=== PATIENT | male | born 1980 ===

== ENCOUNTER 2018-01-13 12:04 | Emergency (ER) | payer SELFPAY ==
--- NOTE | 2018-01-13 13:12 | C.PDOC ---
History Of Present Illness 37 year old male presents to the ED for alcohol intoxication. Otherwise he denies any suicidal or homicidal ideation. Denies any other medical complaints. Time Seen by Provider: 01/13/18 12:16 Chief Complaint (Nursing): Substance Abuse Past Medical History Vital Signs: Last Vital Signs Temp 97.8 F 01/13/18 12:07 Pulse 88 01/13/18 12:07 Resp 20 01/13/18 12:07 BP 131/88 01/13/18 12:07 Pulse Ox 96 01/13/18 12:07 Family History: States: Unknown Family Hx - Social History Hx Alcohol Use: Yes Hx Substance Use: No - Immunization History Hx Tetanus Toxoid Vaccination: (unk) Hx Influenza Vaccination: (unk) Hx Pneumococcal Vaccination: (unk) Review Of Systems Except As Marked, All Systems Reviewed And Found Negative. Gastrointestinal: Negative for: Nausea, Vomiting, Diarrhea Psych: Negative for: Depression, Suicidal ideation Physical Exam - Physical Exam Appears: Non-toxic, Other (alcohol smell on breath) Skin: Warm, Dry Head: Normacephalic Eye(s): bilateral: Normal Inspection Chest: Symmetrical Cardiovascular: Rhythm Regular Respiratory: Normal Breath Sounds Gastrointestinal/Abdominal: Soft, No Tenderness Extremity: Normal ROM Extremity: Bilateral: Atraumatic Neurological/Psych: Oriented x3, Normal Speech Gait: Steady ED Course And Treatment O2 Sat by Pulse Oximetry: 96 (RA) Pulse Ox Interpretation: Normal Disposition - Disposition Referrals: [employer] [facility] [Outside] [facility] [Outside] Disposition: HOME/ ROUTINE Disposition Time: 13:30 Condition: IMPROVED Additional Instructions: SERENA TRAYLOR, thank you for letting us take care of you today. The emergency medical care you received today was directed at your acute symptoms. If you were prescribed any medication, please fill it and take as directed. It may take several days for your symptoms to resolve. Return to the Emergency Department if your symptoms worsen, do not improve, or if you have any other problems. Please contact your doctor or call one of the physicians/clinics you have been referred to that are listed on the Patient Visit Information form that is included in your discharge packet. Bring any paperwork you were given at discharge with you along with any medications you are taking to your follow up visit. Our treatment cannot replace ongoing medical care by a primary care provider outside of the emergency department. Thank you for allowing the [facility] team to be part of your care today. Follow up with your doctor or our clinic this week for outpatient care. Instructions: Alcohol Use - When Is Drinking a Problem? Forms: [employer] Connect (Greek) - Clinical Impression Clinical Impression: Drug abuse - Scribe Statement The provider has reviewed the documentation as recorded by the Scribe Mariama Levy All medical record entries made by the Scribe were at my direction and pers onally dictated by me. I have reviewed the chart and agree that the record accurately reflects my personal performance of the history, physical exam, medical decision making, and the department course for this patient. I have also personally directed, reviewed, and agree with the discharge instructions and disposition.
[2018-01-13 15:23] VITALS: RESP 18
[2018-01-13 16:29] VITALS: BP 119/81; PULSE 110; TEMP 97.6
[2018-01-13 18:38] VITALS: O2SAT 96
== END 2018-01-13 16:33 | disposition home or self-care (01) ==
LOC: C.ER 12:04
DX: F19.10 Other psychoactive substance abuse, uncomplicated (principal)